=== PATIENT | female | born 1940 | race Caucasian/White ===

== ENCOUNTER 2019-06-25 13:19 | Emergency (ER) | payer MEDICARE, BC, SELFPAY ==
[2019-06-25 13:20] VITALS: BP 133/68; PULSE 73; RESP 18; TEMP 36.6; O2SAT 95; BMI 32.9
--- NOTE | 2019-06-25 13:35 | RAD_ITS ---
STUDY: X-RAY - LEFT KNEE REASON FOR EXAM: Female, 78 years old. Pain TECHNIQUE: 4 view(s) of the knee. COMPARISON: None. FINDINGS: There is a 3 part left knee arthroplasty. There is soft tissue edema anterior to the femoral component. There is no visualized acute fracture obvious loosening. RAD/Knee 4 or More Views IMPRESSION: Soft tissue edema anterior and medial to the femoral component. No visualized acute fracture or loosening of the hardware. Electronically Signed: Yara Ocampo MD at 14:00 EDT Tel , Service support ,
--- NOTE | 2019-06-25 14:02 | ED.DCSUM_ITS ---
- ER Visit Summary Date of Service: 06/25/19 Chief Complaint: Left knee pain History of Present Illness: The patient is a 78 F who presents the emergency department with left knee pain. Patient states that she has had bilateral knee replacements from a since retired orthopedic surgeon in [place]. She has no local orthopedic surgeon. She tells me that today she went out walking on a trail at the [facility] and?developed pain in the back of the left knee. States he got to the point where she could not bend it and eventually made it back to her car. She states she could not make it up her steps of her house. So she came here. Physical Examination: Afebrile vital signs are stable Gen: Well-nourished well-developed obese Head: Normocephalic atraumatic Eyes: Perrl EOMI ENT: TMs clear no rhinorrhea moist mucous membranes Neck: Supple no lymphadenopathy no JVD nontender CVS: Regular rate rhythm no murmurs normal S1-S2 Respiratory: No distress clear to auscultation bilaterally chest nontender Abdomen: Soft nontender nondistended normal bowel sounds no masses Back: Nontender Extremity: The left knee appears swollen when compared to the right. She notes tenderness to palpation posteriorly. Joint appears stable. Is no redness/erythema. No obvious joint effusion there does appear to be a fullness in the popliteal fossa Skin: Normal color no rash Neuro: alert orientated ?3 CN II-XII intact normal strength sensation Psych: Normal affect normal mood Test Results: Knee films were obtained which demonstrates swelling but no significant for the hardware. Emergency Department Course and Treatment: This could be a developing Freitas's cyst with a fullness in the posterior aspect of the knee. It is not a sensation is having pain with any type of flexion. Patient has a walker at home. We are going to have her use that and use an Juaquin wrap as well as ice. Her orthopedic surgeon as mentioned above has since retired and she is willing to see a local orthopedic surgeon. Dr. Briscoe is on-call for orthopedics and she was referred there. Impression: 1. Left knee pain This note was generated with [employer] dictation software. It may contain incorrect words, spelling, and punctuation that were not noted in review of the chart prior to signing ED Disposition - Plan for ED Patient: Disposition: Home or Assisted Living Instructions: KNEE PAIN, Uncertain Cause, Freitas's Cyst Prescriptions: Hydrocodone Bitart/Apap 5-325 [[place] 5MG-325MG] 1 tab PO Q6H PRN PRN 3 Days #10 tab PRN Reason: Pain Prescription Printed Referrals: Maty Briscoe DO [STAFF PHYSICIAN] - (call in am to arrange follow up)
[2019-06-25] MEDS: Acetaminophen 500 MG Tablet 1000 MG PO (14:15)
== END 2019-06-25 15:03 | disposition home or self-care (01) ==
PROVIDERS: Emergency Provider Emergency Medicine; Family Provider Internal Medicine; PCP Internal Medicine
DX: M25.562 Pain in left knee (principal); E66.9 Obesity, unspecified; Z96.653 Presence of artificial knee joint, bilateral
CPT/HCPCS: 73564; 99283

== ENCOUNTER 2020-02-10 11:09 | Emergency (ER) | payer MEDICARE, BC, SELFPAY ==
[2019-07-12 07:58] VITALS: BMI 32.9
[2020-02-10 11:10] VITALS: BP 123/91; PULSE 88; RESP 16; TEMP 35.9; O2SAT 97; BMI 32.9
--- NOTE | 2020-02-10 11:27 | EKG12_ITS ---
Test Reason : Blood Pressure : / mmHG Vent. Rate : 075 BPM Atrial Rate : 075 BPM P-R Int : 170 ms QRS Dur : 126 ms QT Int : 416 ms P-R-T Axes : 079 005 074 degrees QTc Int : 464 ms Normal sinus rhythm Left bundle branch block Abnormal ECG Confirmed by ANA GARCIA, SAMSON ([id number]), offline editor ANNIE NUÑEZ ([id number]) on 02/13/2020 3:02:24 PM Referred By: VINICIO Confirmed By:SAMSON PEREZ MD
--- NOTE | 2020-02-10 11:27 | RAD_ITS ---
STUDY: X-RAY CHEST REASON FOR EXAM: Female, 79 years old. Shortness of breath TECHNIQUE: Frontal and lateral views of the chest COMPARISON: 07/05/2016 FINDINGS: The lungs are clear. There are no pleural effusions. There is no pneumothorax. The heart is normal in size. There are stable degenerative changes noted in the spine. RAD/Chest PA and Lateral IMPRESSION: No acute thoracic pathology. Electronically Signed: Michael Pike, at 13:15 EDT Tel , Service support ,
--- NOTE | 2020-02-10 11:28 | ED.DCSUM_ITS ---
History of Present Illness Chief Complaint: Complaint Informant: Patient Narrative: Patient presents the emergency department out of concern with hematuria. She states that for months she has had urinary incontinence and was doing some physical therapy but stopped. She states that yesterday she noticed a small amount of blood on her pad. She saw the same thing again today. She notes urinary frequency no dysuria or fevers. She also states that for months when she goes for her daily walk she is fairly short of breath for the first 50 to 100 meters. She states that she can get past that she does okay but she is labored breathing when she gets back to her car but gets better with rest. No chest pain with it. She notes some intermittent leg swelling for which her doctor prescribed Lasix that she takes as needed. Patient denies weight loss. She is on Eliquis for prior DVT. Past Medical History - Allergies and Home Meds Allergies/Adverse Reactions: Allergies codeine Allergy (Verified 02/10/20 11:10) Hives naproxen [From Naprosyn] Allergy (Verified 02/10/20 11:10) Hives peanut Allergy (Verified 02/10/20 11:10) Hives shellfish derived Allergy (Verified 02/10/20 11:10) Hives Primary Care Physician: Theodora Hawk MD [Primary Care Provider] - As soon as possible Gely Veliz MD [STAFF PHYSICIAN] - (call to arrange follow up with Urology) Smoking Status: Never smoker Review of Systems General: Denies: Chills, Fever, Sweats Eyes: Denies: Visual changes - bilaterally, Diplopia ENT: Denies: Rhinorrhea, Sore throat Cardiovascular: Denies: Chest pain, Palpitations Respiratory: Reports: Dyspnea, Dyspnea on exertion. Denies: Cough Gastrointestinal: Denies: Abdominal pain, Nausea, Vomiting, Diarrhea, Melena, Hematochezia Genitourinary: Reports: Hematuria, Frequency, - - Chronic urinary incontinence. Denies: Dysuria Musculoskeletal: Denies: Back pain, Extremity Pain Skin: Denies: Rash, Wounds Neurological: Denies: Headache, Weakness, Numbness Physical Exam Vital Signs/Narrative: Vital Signs Temp Pulse Resp BP Pulse Ox 02/10/20 11:10 96.7 F L 88 16 123/91 H 97 Inital Vital Signs reviewed: Yes General: Well nourished, Well developed, No Acute Distress Head: Normocephalic, Atraumatic Eyes: Perrl, EOMI ENT: Moist mucous membranes, No rhinorrhea Neck: Supple, Nontender Cardiovascular: Regular rate, Regular rhythm, No murmurs Respiratory: No distress, CTA bilaterally, Chest nontender Abdomen: Soft, Nontender, Nondistended, Normal bowel sounds Back: Nontender, Normal Inspection Extremities: Nontender, No edema Skin: Normal color, No rash Neurological: Alert, Oriented x3, Cranial nerves II-XII grossly intact, Normal Strength, Normal Sensation Psychological: Normal affect, Normal Mood Diagnostic/Tx/Re-eval - EKG Initial EKG Interpretation: Sinus Rhythm - EKG demonstrates a sinus rhythm with a left bundle branch block at a rate of 75., LBBB - Medical Decision Making Chest x-ray was negative. Basic blood work including troponin and BNP is normal. Urinalysis is normal. I do not know if the blood on the pad that she is seeing is from her urine she is not been having any rectal bleeding but she does have a history of hemorrhoids. She would like to see a local urologist. She states she had been traveling from [place] to see one. I will give her Dr. Veliz to follow up with. She tells me as far as her dyspnea that she had a stress test she believes last fall that was normal. This new left bundle branch block is new since the last EKG I have in 2016. This is been months of this dyspnea that she reports. Think it is reasonable to have her follow-up with primary care. I will reach out to them to ensure follow-up. I did speak with her primary care physician who remembers the patient. She did get sent to cardiology for work-up. She will be happy to follow-up with the patient for further exploration. ED Disposition - Plan for ED Patient: Disposition: Home or Assisted Living Diagnosis: Dyspnea, Anticoagulation adequate, Urinary incontinence Instructions: Types of Incontinence, ED Dyspnea Referrals: Theodora Hawk MD [Primary Care Provider] - As soon as possible Gely Veliz MD [STAFF PHYSICIAN] - (call to arrange follow up with Urology)
[2020-02-10 11:44] LABS: Absolute Lymphocyte Count 1.37 X10^3/uL (0.83-4.51); Basophil# 0.05 X10^3/uL; Eosinophil# 0.05 X10^3/uL; Hematocrit 42.1 % (37-47); Hemoglobin 13.7 g/dL (12.0-15.0); Lymphocyte # 1.37 X10^3/ul (4.0); Mean Corp Hgb Conc 32.5 g/dL (32-36); Mean Corpuscular Hgb 30.5 pg (27.0-32.0); Mean Corpuscular Volume 93.8 fL (81-99); Mean Platelet Vol. 9.9 fl (6.2-12.0); Monocyte# 0.79 X10^3/uL; NRBC Flagged by Analyzer 0 % (0-5); Neutrophil # 2.95 X10^3/uL (2.7-7.7); Platelet Count 196 K/mm3 (150-450); RBC Distribution Width CV 12.6 % (11.6-14.6); Red Blood Count 4.49 M/mm3 (4.2-5.4); White Blood Count 5.3 K/mm3 (4.4-11.0)
[2020-02-10 11:50] VITALS: O2SAT 96
[2020-02-10 11:58] VITALS: BP 177/82; PULSE 79; RESP 19; O2SAT 97
[2020-02-10 11:59] VITALS: BP 177/82; PULSE 76; RESP 20; O2SAT 97
[2020-02-10 12:00] LABS: Mucous, Urine 0 SEEN /hpf (<or=2+); Red Blood Cells-Urine 0 SEEN /hpf (0-5); White Blood Cells 0 SEEN /hpf (0-5)
[2020-02-10 12:01] LABS: Color, Urine Yellow (Yellow); Glucose, Dipstick Normal (Normal); Ketone-Dipstick Negative (Negative); Leukocyte Esterase-Dipstick Negative /ul (Negative); Nitrite-Dipstick Negative (Negative); Occult Blood-Urine 10 /ul (Negative); Protein-Dipstick Negative (Negative); Urine Bilirubin Dipstick Negative (Negative); Urine Clarity Clear (Clear); Urine Urobilinogen Normal (Normal)
[2020-02-10 12:02] LABS: ALB/GLOB Ratio 0.7 RATIO (0.9-2.4); AST(SGOT) 20 U/L (15-37); Alanine Aminotransfer ALT/SGPT 24 U/L (13-56); Albumin, Serum 3.4 g/dL (3.2-5.0); Alkaline Phosphatase 71 U/L (45-117); Anion Gap 6 (5-15); BUN 18 mg/dL (7-18); BUN/Creat Ratio 21.3 RATIO (10-20); Calcium,Total 9.1 mg/dL (8.5-10.1); Chloride 110 mmol/L (98-107); Creatinine, Serum 0.84 mg/dL (0.55-1.02); EST Glomerular Filtration Rate 69 mL/min (>60); Est Glom Filt Rate - Afr Amer 83 mL/min (>60); Estimated Creatinine Clearance 41.54 ml/min; Globulin 4.8 g/dL (2.2-4.2); Glucose 92 mg/dL (74-106); Potassium 4.1 mmol/L (3.5-5.1); Protein, Total 8.2 g/dL (6.4-8.2); Sodium Level 142 mmol/L (136-145)
[2020-02-10 12:08] LABS: Bacteria RARE /hpf (None Seen); Squamous Epithelial Cells - UA 0-5 SEEN /hpf (5-10)
[2020-02-10 13:29] VITALS: BP 149/87; PULSE 91; RESP 18; O2SAT 98
--- NOTE | 2020-02-10 13:30 | ED.RN ---
THIS NURSE REVIEWED D/C INSTRUCTIONS WITH PT. PT VERBALIZED UNDERSTANDING OF INSTRUCTIONS. IV D/C. IV CATHETER INTACT. PT TOLERATED WELL. PT DENIES FURTHER NEEDS OR QUESTIONS AT THIS TIME. PT AMBULATES FROM ROOM ON OWN WITHOUT ASSISTANCE FROM STAFF
== END 2020-02-10 13:31 | disposition home or self-care (01) ==
PROVIDERS: Emergency Provider Emergency Medicine; PCP Internal Medicine
DX: R06.00 Dyspnea, unspecified (principal); R32 Unspecified urinary incontinence; Z79.01 Long term (current) use of anticoagulants; R35.0 Frequency of micturition; Z86.718 Personal history of other venous thrombosis and embolism
CPT/HCPCS: 71046; 80053; 81001; 83880; 84484; 85025; 87086; 87088; 93005; 99284; A4216

== ENCOUNTER → 2020-04-17 | Outpatient (CLI) | payer MEDICARE, BC, SELFPAY ==
--- NOTE | 2020-04-17 | BRBX_PTH ---
PATIENT: BERNARDA MUKHERJEE LOC: [facility] U#:[id number] AGE/SX: 79/F ROOM: RE04/17/[address]: Dr. Nida Gomez MD : 1940 BED: DIS: 04/17/2020 SPEC #: [id number] RECD: 04/17/20 13:39 STATUS: CHRISTIANO REStephanie #: [id number] LESLEY: 04/17/20 00:[address]: Nida Gomez DEPT: SURGICAL PATHOLOGY RECD BY: Miles Condon ENTERED: 04/17/20 13:40 SP TYPE: BREAST BX OTHR DR: Dr. Theodora Hawk MD Tissues: Right breast, NOS Procedures: Surgery Specimen Level IV HEADER OPERATION: Right breast stereotactic needle core biopsy PRE-OP DIAGNOSIS: Microcalcifications TISSUE SUBMITTED: Right breast ISCHEMIC TIME: 2 minutes FIXATION TIME: 7.5 hours MICROSCOPIC DIAGNOSIS Right breast, stereotactic needle core biopsy: Fibrocystic change. Focal intraductal hyperplasia without atypia. Rare Banal microcalcifications. AM:chavo 04/18/20 MICROSCOPIC DESCRIPTION Slides are reviewed. GROSS DESCRIPTION Received is one container labeled with the patient's name and not further designated. The specimen consists of multiple irregular and elongated fragments of light watts-yellow soft tissue that in aggregate measure 4 x 4 x 0.2 cm. The specimen is totally submitted in two cassettes. / AM:chavo 04/17/20 TC:5 CPT: 75492
--- NOTE | 2020-04-17 13:00 | PCM.OPRPT ---
Report of Operation Date of Procedure: 04/17/20 Pre-Operative Diagnosis: abnormal calcifications in right breast mammograms Post-Operative Diagnosis: same Surgery/Procedure Performed:: right stereotactic breast biopsy Description of Surgical Findings:: central medial aspect of breast - abnormal calcifications of breast mammograms Type of Anesthesia:: Local - 1% xylocaine Specimen's removed: right breast tissue Estimated Blood Loss (mL): minimal Description of Procedure: After informed consent was given, the patient was brought into the Breast Imaging suite. Appropriate time out protocol was followed. She was then placed in the prone position on the stereotactic biopsy table. The patient?s right breast was then placed in the opening at the head of the table. A egg producer compression mammogram was then obtained in the CC view. The suspicious radiological lesion was then identified. Stereo pictures of the lesion were then taken for XYZ coordinates. The Mammotome biopsy stylus was then positioned where it would be entering into the patient?s breast. The skin at this site was then cleansed with a surgical skin preparation. The skin and subcutaneous tissues at this site were then infiltrated with 1% xylocaine. A small skin incision was made with an 11 blade scalpel. The biopsy stylus was then positioned into the patient?s breast at the proper coordinates of depth. Using the Mammotome vacuum-assist device, several core samples of breast tissue were obtained. A specimen mammogram was the obtained. It revealed that the abnormal calcifications were within the specimen. This was reviewed by me personally and thus the procedure continued. A hemostatic marker clip was then placed into the biopsy cavity and a egg producer film revealed that it was properly deployed. The patient was then placed in the supine position and pressure was applied to the breast until no active bleeding was noted. A nylon suture was applied to reapproximate the skin. A unilateral mammogram in the CC and MLO view were then taken which revealed that the marker clip was in the same area as the previous suspicious lesion. The patient tolerated the procedure well and was discharged from the breast biopsy suite in good condition. - Complications none noted
== END | disposition home or self-care (01) ==
LOC: BIRAD 10:57
PROVIDERS: PCP Internal Medicine; Referring Provider Surgery; Visit Provider Surgery
DX: N62 Hypertrophy of breast (principal); R92.1 Mammographic calcification found on diagnostic imaging of breast
CPT/HCPCS: 19081; 88305; J7050

== ENCOUNTER 2020-08-15 11:05 | Emergency (ER) | payer MEDICARE, BC, SELFPAY ==
[2020-08-15 11:06] VITALS: BP 173/83; PULSE 72; RESP 16; TEMP 36.2; O2SAT 99; BMI 34.1
--- NOTE | 2020-08-15 11:27 | EKG12_ITS ---
Test Reason : CP Blood Pressure : / mmHG Vent. Rate : 074 BPM Atrial Rate : 074 BPM P-R Int : 168 ms QRS Dur : 122 ms QT Int : 432 ms P-R-T Axes : 080 027 054 degrees QTc Int : 479 ms Normal sinus rhythm Left bundle branch block Abnormal ECG Confirmed by ANA GARCIA, SAMSON ([id number]), news video editor HERO SALEH ([id number]) on 08/16/2020 11:16:27 AM Referred By: GIGI Confirmed By:SAMSON PEREZ MD
--- NOTE | 2020-08-15 11:27 | RAD_ITS ---
EXAM DESCRIPTION: PORTABLE AP CHEST CLINICAL HISTORY: 79 years Female, INTERMITTENT STERNAL CHEST PAIN TODAY INTERMITTENT STERNAL CHEST PAIN TODAY COMPARISON: Previous chest obtained on 02/10/2020 FINDINGS: There is debk-ju-oadtvuwl levoscoliosis of the lower thoracic spine which was previously identified and is unchanged. The rest of the thorax is intact. The heart and mediastinum appear to be within normal limits. The lungs appear to be well areated without evidence of pneumonic consolidation or pleural effusion. RAD/Chest 1 View (Portable) IMPRESSION: No acute pathology. Electronically Signed: Bryan Leija, at 12:28 EST Tel , Service support ,
--- NOTE | 2020-08-15 11:30 | ED.VIS.GEN ---
History of Present Illness Chief Complaint: Chest Pain Narrative: This patient is an 79-year-old female who presents with chest pain. It began yesterday. She complains of a mild central chest pressure. This lasts 1 to 2 minutes at a time. It is happened multiple times yesterday and today. She states she is had a least 4 episodes today. Currently she has no pain. No associated nausea lightheadedness diaphoresis shortness of breath. Denies recent illness such as fevers or cough. No history of prior similar symptoms. No history of coronary disease. She is on Eliquis due to history of blood clots. She denies diabetes hypertension hyperlipidemia. Past Medical History - Allergies and Home Meds Allergies/Adverse Reactions: Allergies codeine Allergy (Verified 08/15/20 11:06) Hives naproxen [From Naprosyn] Allergy (Verified 08/15/20 11:06) Hives peanut Allergy (Verified 08/15/20 11:06) Hives shellfish derived Allergy (Verified 08/15/20 11:06) Hives Primary Care Physician: Theodora Hawk MD [Primary Care Provider] - Past Medical History: - - DVT Smoking Status: Never smoker Review of Systems All systems negative except as indicated General: Denies: Fever Eyes: Denies: Visual changes - bilaterally ENT: Denies: Bilateral ear pain Cardiovascular: Reports: Chest pain Respiratory: Denies: Dyspnea Gastrointestinal: Denies: Abdominal pain, Nausea, Vomiting, Diarrhea Musculoskeletal: Denies: Myalgias, Arthralgias Skin: Denies: Rash Neurological: Denies: Headache Allergy: Denies: Uticaria Physical Exam Vital Signs/Narrative: Vital Signs Temp Pulse Resp BP Pulse Ox 08/15/20 11:06 97.1 F L 72 16 173/83 H 99 Inital Vital Signs reviewed: Yes General: Well nourished, Well developed Head: Normocephalic Eyes: EOMI ENT: Moist mucous membranes Neck: Supple Cardiovascular: Regular rate, Regular rhythm Respiratory: No distress, CTA bilaterally Abdomen: Soft, Nontender, Nondistended Extremities: Nontender, - - Palpable symmetric radial pulses Skin: Normal color Neurological: Alert Psychological: - - Patient appears anxious Diagnostic/Tx/Re-eval Impressions Chest X-Ray 08/15/20 11:27 IMPRESSION: No acute pathology. Electronically Signed: Bryan Leija, at 12:28 EST Tel , Service support , 08/15/20 11:27 Chest 1 View (Portable) [RAD] Stat Laboratory Results 08/15/20 08/15/20 11:20 11:20 WBC 5.7 RBC 4.61 Hgb 13.9 Hct 43.5 MCV 94.4 MCH 30.2 MCHC 32.0 RDW Std Deviation 43.4 RDW Coeff of Arielle 12.7 Plt Count 184 MPV 10.1 Immature Gran % (Auto) 0.700 Neut % (Auto) 51.5 Lymph % (Auto) 30.7 Rolette % (Auto) 15.2 H Eos % (Auto) 1.2 Baso % (Auto) 0.7 Absolute Neuts (auto) 3.0 Absolute Lymphs (auto) 1.76 Nucleated RBC % 0 Sodium 139 Potassium 4.5 Chloride 108 H Carbon Dioxide 27.0 Anion Gap 4 L BUN 15 Creatinine 1.01 Estim Creat Clear Calc 34.55 Est GFR (MDRD) Af Amer 68 Est GFR (MDRD) Non-Af 56 L BUN/Creatinine Ratio 14.9 Glucose 84 Calcium 9.3 Troponin I < 0.015 - Medical Decision Making EKG shows normal sinus rhythm with a left bundle branch block, no acute ischemic changes. Chest x-ray shows no acute process. Laboratory studies are unremarkable with a negative troponin. AURELIA risk score is 1. Heart score is 5. Patient will be discussed with the hospitalist and placed in observation for further evaluation and management. ED Disposition - Plan for ED Patient: Disposition: Acute Care Hospital [facility] Diagnosis: Chest pain Referrals: Theodora Hawk MD [Primary Care Provider] -
[2020-08-15] MEDS: Aspirin 81 MG TAB.CHEW 324 MG PO (11:39)
[2020-08-15 11:41] LABS: Absolute Lymphocyte Count 1.76 X10^3/uL (0.83-4.51); Basophil# 0.04 X10^3/uL; Basophil% 0.7 % (0-1); Eosinophil# 0.07 X10^3/uL; Eosinophils% 1.2 % (0-5); Hematocrit 43.5 % (37-47); Hemoglobin 13.9 g/dL (12.0-15.0); Lymphocyte # 1.76 X10^3/ul (4.0); Lymphocyte % 30.7 % (19-41); Mean Corpuscular Hgb 30.2 pg (27.0-32.0); Mean Corpuscular Volume 94.4 fL (81-99); Mean Platelet Vol. 10.1 fl (6.2-12.0); Monocyte# 0.87 X10^3/uL; Monocyte% 15.2 % (0-10); NRBC Flagged by Analyzer 0 % (0-5); Neutrophil # 2.95 X10^3/uL (2.7-7.7); Neutrophil % 51.5 % (47-70); Platelet Count 184 K/mm3 (150-450); RBC Distribution Width CV 12.7 % (11.6-14.6); RBC Distribution Width SD 43.4 fl (35.1-43.9); Red Blood Count 4.61 M/mm3 (4.2-5.4); White Blood Count 5.7 K/mm3 (4.4-11.0)
[2020-08-15 11:49] LABS: Anion Gap 4 (5-15); BUN 15 mg/dL (7-18); BUN/Creat Ratio 14.9 RATIO (10-20); Calcium,Total 9.3 mg/dL (8.5-10.1); Chloride 108 mmol/L (98-107); Creatinine, Serum 1.01 mg/dL (0.55-1.02); EST Glomerular Filtration Rate 56 mL/min (>60); Est Glom Filt Rate - Afr Amer 68 mL/min (>60); Estimated Creatinine Clearance 34.55 ml/min; Glucose 84 mg/dL (74-106); Potassium 4.5 mmol/L (3.5-5.1); Sodium Level 139 mmol/L (136-145)
[2020-08-15 12:08] VITALS: BP 165/80; PULSE 70; RESP 20; O2SAT 97
[2020-08-15 13:19] VITALS: BP 177/71; PULSE 66; RESP 16; O2SAT 97
--- NOTE | 2020-08-15 13:49 | ED.DEP ---
ED Disposition - Plan for ED Patient: Disposition: Against Medical Advice Diagnosis: Chest pain Referrals: Theodora Hawk MD [Primary Care Provider] - Additional Instructions: You were seen today for chest pain. Although your blood work was okay we are still concerned this could potentially be your heart and recommended watching overnight in the hospital for repeat blood work and a stress test. You elected to follow-up with your physician instead. You are welcome to return at any point for reevaluation and I encourage you to do so if you develop any new or worsening symptoms or change her mind.
[2020-08-15 14:00] VITALS: BP 169/71; PULSE 71; RESP 18
== END 2020-08-15 14:03 | disposition left against medical advice (07) ==
PROVIDERS: Emergency Provider Emergency Medicine; PCP Internal Medicine
DX: R07.9 Chest pain, unspecified (principal); Z86.718 Personal history of other venous thrombosis and embolism; Z79.02 Long term (current) use of antithrombotics/antiplatelets
CPT/HCPCS: 71045; 80048; 84484; 85025; 93005; 99285; A4216

== ENCOUNTER 2020-10-18 15:07 | Outpatient (RCR) | payer MEDICARE, BC, SELFPAY | END 2020-10-18 23:59 | LOC: IMMUN 15:07 | PROVIDERS: PCP Internal Medicine; Visit Provider Family Medicine | DX: Z23 Encounter for immunization (principal) | CPT/HCPCS: 0011A; 0012A; 91301 ==

== ENCOUNTER 2021-02-22 17:52 | Emergency (ER) | payer MEDICARE, BC, SELFPAY ==
[2021-02-22 17:53] VITALS: BP 184/68; PULSE 59; RESP 17; TEMP 35.9; O2SAT 96; BMI 34.1
--- NOTE | 2021-02-22 18:03 | EX.ED.DYSGE1 ---
HPI History of Present Illness Chief Complaint: Abscess Informant: patient and spouse/S.O. Onset/Context/Timing Onset: Yesterday Context: Gradual Onset Timing: Continuous Current Severity: Mild Maximum Severity: Mild Narrative Narrative: 80-year-old female history of prior PE and hypertension on Eliquis. stated he thought there might have been a small arrington on her left ear and now I think it might be an abscess. Prior similar symptoms: No Recent Illness/Hospitalization: No PFSH PFSH Medical History (Updated 02/22/21 @ 18:13 by Briana Fox) Benign essential HTN Home Medications apixaban 5 mg PO BID #60 tab 07/05/16 [Rx Last Taken Unknown] latanoprost 1 drp RIGHT EYE QHS 01/19/17 [History Last Taken Unknown] Allergy/AdvReac Type Severity Reaction Status Date / Time codeine Allergy Hives Verified 02/22/21 17:54 naproxen [From Naprosyn] Allergy Hives Verified 02/22/21 17:54 peanut Allergy Hives Verified 02/22/21 17:54 shellfish derived Allergy Hives Verified 02/22/21 17:54 Social History Smoking Status: Never smoker ROS ROS ED ROS Narrative Patient denies any recent illness. No fever or chills. Review of Systems ROS Unobtainable: Denies due to encephalopathy Constitutional Constitutional ED: Denies chills or fever(s) Eyes Eyes: Denies change in vision ENT ENT ED: Reports ear pain Cardiovascular Cardiovascular: Denies chest pain Respiratory/Chest Respiratory/Chest: Denies dyspnea Gastrointestinal Gastrointestinal: Denies abdominal pain, diarrhea, nausea or vomiting Genitourinary Genitourinary ED: Denies dysuria Musculoskeletal Musculoskeletal: Denies myalgias Integumentary Reports abscess; Denies rash Neurologic Neurologic: Denies headache(s) Psychiatric Psychiatric: Denies depression Endocrine Endocrinology: Denies polyuria Allergic/Immunologic Allergic/Immunologic ED: Denies urticaria EXAM Physical Exam Narrative Exam Narrative: Well-appearing older female no acute distress. Vital signs stable afebrile. Left ear midportion there appears to be a small abscess. Area is mildly tender and fluctuant. There is no surrounding cellulitis. There is no lymphadenopathy. Otherwise exam unremarkable. Lungs are clear. Heart regular rhythm no murmur. Const Vital Signs: 02/22/21 17:53 Temperature 96.7 F L Temperature Source Temporal Pulse Rate 59 L Respiratory Rate 17 Blood Pressure 184/68 H Blood Pressure Mean 106 Pulse Ox 96 Oxygen Delivery Method Room Air Positive well nourished and well developed General Appearance ED: well developed HEENT HEENT Narrative: Left midportion of the ear with a suspected abscess area is fluctuant and tender. Small about the size of an eraser at the end of the pencil. tenderness; Negative for trauma Eyes PERRL and EOMs intact bilaterally Neck no lymphadenopathy, supple and no JVD General: Negative for tenderness Chest Wall inspection of chest normal Resp normal respiratory effort and clear to auscultation bilaterally Cardio regular rate, regular rhythm and no murmurs Rate: Negative for bradycardia or tachycardic GI normal to inspection, nondistended, normoactive bowel sounds, non-tender and non-distended Palpation: soft Extremity normal to inspection General Extremety ED: Negative for edema or tenderness General Extremity: Negative for edema Neuro oriented x3 and CN's II-XII intact bilaterally Sensorium / Orientation: alert Motor Exam: strength 5/5 throughout Psych mental status grossly normal Skin no rashes or lesions noted MDM MDM MDM Narrative Medical decision making narrative: Patient with suspected abscess on her left ear. Area be cleaned. Let applied. Once proper local anesthetic was obtained. I opened the area on her left ear and there was no pus whatsoever. There was no significant hematoma no significant bleeding. No foreign body. This appeared to be a small blood blister from where her popped a arrington and caused a small hematoma due to the patient being on anticoagulation. They were instructed to keep it clean and antibiotic ointment on it. Watch for any signs of infection. Procedures Other Procedures Procedure(s): Incision and drainage left ear Discharge Plan Triage Chief Complaint: Abscess ED Provider: Reji Goodman Dx/Rx/DC Orders Prescriptions: No Action apixaban 5 MG tablet 5 mg PO BID Qty: 60 RF: 3 latanoprost 1 DROP bottle 1 drp RIGHT EYE QHS RF: 0 Primary Care Provider: Theodora Hawk
[2021-02-22] MEDS: Lidocaine/Epi/Tetracaine 50 ML 1 APPLIC TOPICAL (18:11)
== END 2021-02-22 19:07 | disposition home or self-care (01) ==
PROVIDERS: Emergency Provider Emergency Medicine; PCP Internal Medicine
DX: H60.02 Abscess of left external ear (principal); I10 Essential (primary) hypertension; Z86.711 Personal history of pulmonary embolism; Z79.02 Long term (current) use of antithrombotics/antiplatelets; Z79.899 Other long term (current) drug therapy
CPT/HCPCS: 69000; 99283

== ENCOUNTER → 2022-09-22 | Outpatient (CLI) | payer MEDICARE, BC, SELFPAY ==
--- NOTE | 2022-09-22 14:25 | LES_PTH ---
PATIENT: BERNARDA MUKHERJEE LOC: [facility]#:[id number] AGE/SX: 81/F ROOM: RE09/22/[address]: Dr. Sotero Horta MD : 1940 BED: DIS: 09/22/2022 SPEC #: [id number] RECD: 09/22/22 17:47 STATUS: CHRISTIANO LARA #: [id number] LESLEY: 09/22/22 14:[address]: Sotero Horta DEPT: SURGICAL PATHOLOGY RECD BY: Bruce Byers ENTERED: 09/23/22 08:13 SP TYPE: Lesion OTHR DR: Dr. Theodora Hawk MD Tissues: Skin of eyelid, NOS Procedures: Surgery Specimen Level IV HEADER OPERATION: Removal of neoplasm RLL PRE-OP DIAGNOSIS: Neoplasm RLL TISSUE SUBMITTED: Right lower eyelid MICROSCOPIC DIAGNOSIS Lesion of right lower eyelid, biopsy: Suggestive of verrucoid keratosis. See comment. AM:chavo 09/24/2022 COMMENT The specimen is fragmented. MICROSCOPIC DESCRIPTION Slides are reviewed. GROSS DESCRIPTION Received is one container labeled with the patient's name and not further designated. The specimen consists of a fragment of watts-white skin measuring 0.2 x 0.1 x 0.1 cm. The entire specimen is submitted in one cassette. / SJ:chavo 09/23/2022 TC:5 [facility]: [id number]
== END | disposition home or self-care (01) ==
PROVIDERS: PCP Internal Medicine; Visit Provider Ophthalmology
DX: H02.9 Unspecified disorder of eyelid (principal)
CPT/HCPCS: 88305